=== PATIENT | male | born 1985 | race Caucasian/White ===

== ENCOUNTER 2018-04-14 06:54 | Emergency (ER) | payer OTHER ==
[~2018-04-14] VITALS: Ht 172.7 cm; Wt 102.0 kg
[~2018-04-14 06:54] MED LIST: AMOXICILLIN500 MG OR; AMOXICILLIN500 MG PO; ANUSOL-HC25 MG RE; CLINDAMYCIN150 MG OR; FAMOTIDINE40 M1 OR; FLEXERIL OR; FLEXERIL10 MG PO; FLOXIN OTIC OT; LAMISIL AT1 % EX; LORTAB 10 PO; LORTAB 7.5 OR; NAPROSYN500 MG PO; NO HOME MEDS; PENICILLN VK500 M1 OR; PENICILLN VK500 MG OR; PERCOCET 5/325M1 TAB OR; ROBITUSSIN AC10 ML OR; TYLENOL500 MG OR; ULTRAM50 M1 PO; ZOFRAN4 MG/TAB PO
[2018-04-14] MEDS ORDERED: CEPHALEXIN500 M1 PO (08:17)
[2018-04-14 08:26] VITALS: BP 116/70
== END 2018-04-14 08:26 | disposition home or self-care (01) ==
LOC: ED 06:54
DX: S61.412A Laceration without foreign body of left hand, initial encounter (principal); F17.220 Nicotine dependence, chewing tobacco, uncomplicated; W22.09XA Striking against other stationary object, initial encounter

== ENCOUNTER 2018-05-10 18:35 | Emergency (ER) | payer MEDICAID ==
[~2018-05-10] VITALS: Ht 172.7 cm; Wt 93.2 kg
[~2018-05-10 18:35] MED LIST changes: +CEPHALEXIN500 M1 PO
[2018-05-10] MEDS ORDERED: DOXYCYC MONO100 M1 PO (19:01)
[2018-05-10 19:02] VITALS: BP 133/85
== END 2018-05-10 19:08 | disposition home or self-care (01) ==
LOC: ED 18:35
DX: J03.90 Acute tonsillitis, unspecified (principal); L73.9 Follicular disorder, unspecified